=== PATIENT | male | born 1955 | race Caucasian/White ===

== ENCOUNTER 2023-03-06 11:52 | Emergency (ER) | payer MEDICARE, SELFPAY ==
[2023-03-06 12:12] VITALS: BP 149/86; PULSE 60; RESP 18; TEMP 36.4; O2SAT 97; BMI 26.5
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
== END 2023-03-06 14:38 | disposition home or self-care (01) ==
PROVIDERS: Emergency Provider Emergency Medicine Emergency Medical Services; PCP Family Medicine
DX: M79.604 Pain in right leg (principal)
CPT/HCPCS: 99283; 99284

== ENCOUNTER 2023-09-17 07:12 | Outpatient (RCR) | payer MEDICARE, SELFPAY | END 2024-01-15 23:59 | disposition home or self-care (01) | PROVIDERS: PCP Family Medicine; Visit Provider Family Medicine | DX: Z53.09 Procedure and treatment not carried out because of other contraindication (principal) ==

== ENCOUNTER 2023-09-26 14:00 | Outpatient (RCR) | payer MEDICARE, SELFPAY | END 2024-01-24 23:59 | disposition home or self-care (01) | PROVIDERS: PCP Family Medicine; Visit Provider Specialist | DX: M54.16 Radiculopathy, lumbar region (principal); Z51.89 Encounter for other specified aftercare | CPT/HCPCS: 97012; 97032; 97110; 97140; 97161; 97164 ==